=== PATIENT | female | born 1975 | race African-American/Black ===

== ENCOUNTER 2018-12-11 16:51 | Emergency (ER) | payer OTHER ==
[~2018-12-11] VITALS: Ht 172.7 cm; Wt 76.2 kg
[2018-12-11] MEDS ORDERED: CARBAMAZEPINE200 M5 PO (17:23)
[2018-12-11] MEDS ORDERED: ZONISAMIDE 100100 M1 PO (17:24)
[2018-12-11 17:48] LABS: ABSOLUTE NEUTROPHILS 2.4 thou/uL (1.4-8.2); BASOPHILS 0.5 % (0.0-2.0); EOSINOPHILS 1.2 % (0.0-3.0); HEMATOCRIT 37.2 % (37.0-47.0); HEMOGLOBIN 12.5 gm/dL (12.0-15.0); LYMPHOCYTES 30.6 % (24.0-44.0); MCH 29.7 pg (26.0-34.0); MCHC 33.6 g/dL (28.0-37.0); MCV 88.3 fL (80.0-100.0); PLATELET COUNT 214 thou/uL (150-400); POLYS 58.7 % (36.0-66.0); RBC 4.21 mil/uL (4.20-5.00); RDW 13.3 % (10.5-14.5)
[2018-12-11 18:01] LABS: CALCIUM 9.4 mg/dL (8.5-10.1); POTASSIUM 3.7 mmol/L (3.5-5.1)
[2018-12-11 18:07] LABS: TOTAL BILIRUBIN 0.2 mg/dL (<0.1-1.0); TOTAL PROTEIN 7.9 g/dL (6.4-8.2)
[2018-12-11 18:27] LABS: URINE BILIRUBIN NEGATIVE (Negative); URINE BLOOD TRACE (Negative); URINE CLARITY CLEAR; URINE COLOR YELLOW; URINE GLUCOSE-RANDOM* NEGATIVE (Negative); URINE KETONES NEGATIVE (Negative); URINE LEUKOCYTES-REFLEX NEGATIVE (Negative); URINE NITRITE-REFLEX NEGATIVE (Negative); URINE PROTEIN (DIPSTICK) NEGATIVE (Negative); URINE SPECIFIC GRAVITY >= 1.030 (1.005-1.035); URINE UROBILINOGEN 0.2 E.U./dl (0.2-1.0)
[2018-12-11] MEDS ORDERED: ONDANSETRON HCL4 M2 PO (21:31)
[2018-12-11 21:35] VITALS: BP 104/57
== END 2018-12-11 21:37 | disposition home or self-care (01) ==
LOC: ER 16:51
PROVIDERS: Physician Assistant
DX: R19.7 Diarrhea, unspecified (principal); R11.2 Nausea with vomiting, unspecified; R10.30 Lower abdominal pain, unspecified; R51 Headache; Z88.1 Allergy status to other antibiotic agents; Z88.0 Allergy status to penicillin

== ENCOUNTER 2018-12-15 12:03 | Emergency (ER) | payer OTHER ==
[~2018-12-15] VITALS: Ht 172.7 cm; Wt 76.2 kg
[~2018-12-15 12:03] MED LIST: CARBAMAZEPINE200 M5 PO; ONDANSETRON HCL4 M2 PO; ZONISAMIDE 100100 M1 PO
[2018-12-15 14:09] VITALS: BP 123/74
== END 2018-12-15 14:10 | disposition home or self-care (01) ==
LOC: ER 12:03
DX: O02.81 Inappropriate change in quantitative human chorionic gonadotropin (hCG) in early pregnancy (principal); G40.909 Epilepsy, unspecified, not intractable, without status epilepticus; Z88.0 Allergy status to penicillin; Z88.1 Allergy status to other antibiotic agents

== ENCOUNTER 2019-01-03 15:17 | Emergency (ER) | payer OTHER ==
[~2019-01-03] VITALS: Ht 172.7 cm; Wt 76.2 kg
[2019-01-03 15:35] LABS: URINE BILIRUBIN NEGATIVE (Negative); URINE BLOOD NEGATIVE (Negative); URINE CLARITY CLEAR; URINE COLOR YELLOW; URINE GLUCOSE-RANDOM* NEGATIVE (Negative); URINE KETONES NEGATIVE (Negative); URINE LEUKOCYTES-REFLEX NEGATIVE (Negative); URINE NITRITE-REFLEX NEGATIVE (Negative); URINE PROTEIN (DIPSTICK) NEGATIVE (Negative); URINE UROBILINOGEN 0.2 E.U./dl (0.2-1.0)
[2019-01-03 15:45] LABS: ABSOLUTE NEUTROPHILS 3.5 thou/uL (1.4-8.2); BASOPHILS 0.6 % (0.0-2.0); EOSINOPHILS 1.3 % (0.0-3.0); HEMATOCRIT 37.9 % (37.0-47.0); HEMOGLOBIN 12.4 gm/dL (12.0-15.0); LYMPHOCYTES 30.3 % (24.0-44.0); MCH 29.3 pg (26.0-34.0); MCHC 32.9 g/dL (28.0-37.0); MCV 89.1 fL (80.0-100.0); MONOCYTES 4.2 % (1.0-8.0); PLATELET COUNT 250 thou/uL (150-400); POLYS 63.6 % (36.0-66.0); RBC 4.25 mil/uL (4.20-5.00); RDW 13.8 % (10.5-14.5); WBC 5.5 thou/uL (4.0-11.0)
[2019-01-03 15:51] LABS: CALCIUM 9.1 mg/dL (8.5-10.1); CREATININE 1.1 mg/dL (0.6-1.0); POTASSIUM 3.7 mmol/L (3.5-5.1)
[2019-01-03 15:57] LABS: TOTAL BILIRUBIN 0.1 mg/dL (<0.1-1.0); TOTAL PROTEIN 7.9 g/dL (6.4-8.2)
[2019-01-03] MEDS ORDERED: DOXYCYCLINE 10100 MG PO (19:24)
[2019-01-03] MEDS ORDERED: NAPROSYN500 MG PO (19:24)
[2019-01-03 19:35] VITALS: BP 116/67
== END 2019-01-03 19:35 | disposition home or self-care (01) ==
LOC: ER 15:17
PROVIDERS: Emergency Medicine; Physician Assistant
DX: N73.9 Female pelvic inflammatory disease, unspecified (principal); Z88.0 Allergy status to penicillin; Z88.1 Allergy status to other antibiotic agents